=== PATIENT | male | born 1965 | race Caucasian/White ===

== ENCOUNTER 2017-02-17 15:14 | Emergency (ER) | payer OTHER ==
[~2017-02-17] VITALS: Ht 157.5 cm; Wt 61.3 kg
[2017-02-17 15:30] VITALS: BP 118/85
== END 2017-02-17 15:58 | disposition home or self-care (01) ==
LOC: ED 15:14
DX: R11.10 Vomiting, unspecified (principal); R19.7 Diarrhea, unspecified